=== PATIENT | male | born 1940 | race Caucasian/White ===

== ENCOUNTER → 2016-10-27 | Outpatient (CLI) | payer MEDICARE, MEDICAID ==
[~2016-10-27] VITALS: Ht 175.3 cm; Wt 49.0 kg
[~2016-10-27] MED LIST: BAYE325T12 PO; COLA100C3 PO; IPRASOL4 INH; LIDOCAINE 2% INJ 100 MG/5 ML SDV (FOR ANES.) As Ordered ONE; MECL-68 PO; NS 1,000 ML IV ONE; OMEP40CA2 PO; PROA1AER INH; PROPOFOL 200 MG/20 ML VIAL As Ordered ONE; SENO8.6T2 PO; SOMA250T PO; TYLETAB15 PO; ZOLO100T PO; fentaNYL 100 MCG/2 ML INJECTION (J3010) As Ordered ONE; melatonin
--- NOTE | 2016-10-27 10:45 | ROOR ---
Patient Name: Volodymyr Aggarwal Procedure Date: 10/27/2016 10:25 AM Date of : 1940 Age: 76 Room: [facility] Gender: Male Note Status: Finalized Procedure: Upper GI endoscopy Indications: Epigastric abdominal pain Providers: Tj Caputo Jr, MD Referring MD: Theresa Herron DO Requesting Provider: Medicines: Propofol per Anesthesia Complications: No immediate complications. Procedure: Pre-Anesthesia Assessment: - Prior to the procedure, a History and Physical was performed, and patient medications and allergies were reviewed. The patient is competent. The risks and benefits of the procedure and the sedation options and risks were discussed with the patient. All questions were answered and informed consent was obtained. Patient identification and proposed procedure were verified by the physician and the nurse in the pre-procedure area and in the procedure room. Mental Status Examination: alert and oriented. Airway Examination: normal oropharyngeal airway and neck mobility. Respiratory Examination: clear to auscultation. CV Examination: normal. ASA Grade Assessment: III - A patient with severe systemic disease. After reviewing the risks and benefits, the patient was deemed in satisfactory condition to undergo the procedure. The anesthesia plan was to use moderate sedation / analgesia (conscious sedation). Immediately prior to administration of medications, the patient was re-assessed for adequacy to receive sedatives. The heart rate, respiratory rate, oxygen saturations, blood pressure, adequacy of pulmonary ventilation, and response to care were monitored throughout the procedure. The physical status of the patient was re-assessed after the procedure. The Endoscope was introduced through the mouth, and advanced to the second part of duodenum. The upper GI endoscopy was accomplished without difficulty. The patient tolerated the procedure well. Findings: The upper third of the esophagus, middle third of the esophagus and lower third of the esophagus were normal. Mildly severe esophagitis with bleeding was found at the gastroesophageal junction. Biopsies were taken with a cold forceps for histology. The cardia, gastric fundus, gastric body, gastric antrum, prepyloric region of the stomach and pylorus were normal. Patchy mild inflammation characterized by congestion (edema), erythema and friability was found in the duodenal bulb. The first portion of the duodenum and second portion of the duodenum were normal. A small hiatal hernia was present. Impression: - Normal upper third of esophagus, middle third of esophagus and lower third of esophagus. - Mildly severe reflux esophagitis. Biopsied. - Normal cardia, gastric fundus, gastric body, antrum, prepyloric region of the stomach and pylorus. - Duodenitis. - Normal first portion of the duodenum and second portion of the duodenum. Recommendation: - Discharge patient to home (ambulatory). - Return to my office in 2 weeks. Tj Caputo MD Tj Caputo Jr, MD 10/27/2016 10:45:15 AM This report has been signed electronically. Number of Addenda: 0 Note Initiated On: 10/27/2016 10:25 AM Estimated Blood Loss: Estimated blood loss: none.
--- NOTE | 2016-10-27 11:07 | ROOR ---
Patient Name: Volodymyr Aggarwal Procedure Date: 10/27/2016 10:27 AM Date of : 1940 Age: 76 Room: [facility] Gender: Male Note Status: Finalized Procedure: Colonoscopy Indications: Screening for colorectal malignant neoplasm Providers: Tj Caputo Jr, MD Referring MD: Theresa Herron DO Requesting Provider: Medicines: Propofol per Anesthesia Complications: No immediate complications. Procedure: Pre-Anesthesia Assessment: - Prior to the procedure, a History and Physical was performed, and patient medications and allergies were reviewed. The patient is competent. The risks and benefits of the procedure and the sedation options and risks were discussed with the patient. All questions were answered and informed consent was obtained. Patient identification and proposed procedure were verified by the physician and the nurse in the pre-procedure area and in the procedure room. Mental Status Examination: alert and oriented. Airway Examination: normal oropharyngeal airway and neck mobility. Respiratory Examination: clear to auscultation. CV Examination: normal. ASA Grade Assessment: II - A patient with mild systemic disease. After reviewing the risks and benefits, the patient was deemed in satisfactory condition to undergo the procedure. The anesthesia plan was to use moderate sedation / analgesia (conscious sedation). Immediately prior to administration of medications, the patient was re-assessed for adequacy to receive sedatives. The heart rate, respiratory rate, oxygen saturations, blood pressure, adequacy of pulmonary ventilation, and response to care were monitored throughout the procedure. The physical status of the patient was re-assessed after the procedure. The Colonoscope was introduced through the anus and advanced to the cecum, identified by appendiceal orifice and ileocecal valve. The colonoscopy was performed without difficulty. The patient tolerated the procedure well. The quality of the bowel preparation was adequate and good. Findings: The rectum, sigmoid colon, descending colon, transverse colon, ascending colon, cecum, appendiceal orifice and ileocecal valve appeared normal. A diminutive polyp was found in the hepatic flexure. The polyp was removed with a cold biopsy forceps. Resection and retrieval were complete. Impression: - The rectum, sigmoid colon, descending colon, transverse colon, ascending colon, cecum, appendiceal orifice and ileocecal valve are normal. - One diminutive polyp at the hepatic flexure, removed with a cold biopsy forceps. Resected and retrieved. Recommendation: - Repeat colonoscopy in 5-10 years for surveillance based on pathology results. Tj Caputo MD Tj Caputo Jr, MD 10/27/2016 11:07:18 AM This report has been signed electronically. Number of Addenda: 0 Note Initiated On: 10/27/2016 10:27 AM Estimated Blood Loss: Estimated blood loss: none.
[2016-10-27 11:39] VITALS: BP 133/78
== END | disposition home or self-care (01) ==
LOC: M OPP 09:06
PROVIDERS: ATTEND Surgery
DX: Z12.11 Encounter for screening for malignant neoplasm of colon (principal); D12.3 Benign neoplasm of transverse colon; R10.13 Epigastric pain; R11.2 Nausea with vomiting, unspecified; K29.80 Duodenitis without bleeding; K21.0 Gastro-esophageal reflux disease with esophagitis; R93.2 Abnormal findings on diagnostic imaging of liver and biliary tract; K59.00 Constipation, unspecified; B18.2 Chronic viral hepatitis C; D64.9 Anemia, unspecified; F41.9 Anxiety disorder, unspecified; F32.9 Major depressive disorder, single episode, unspecified; M54.2 Cervicalgia; M25.60 Stiffness of unspecified joint, not elsewhere classified; J44.9 Chronic obstructive pulmonary disease, unspecified; R32 Unspecified urinary incontinence; Z86.69 Personal history of other diseases of the nervous system and sense organs; R06.02 Shortness of breath; Z87.19 Personal history of other diseases of the digestive system; Z87.828 Personal history of other (healed) physical injury and trauma; Z87.891 Personal history of nicotine dependence; Z88.0 Allergy status to penicillin; Z88.1 Allergy status to other antibiotic agents; Z79.82 Long term (current) use of aspirin; Z79.899 Other long term (current) drug therapy
CPT/HCPCS: 43239; 45380; 88305; J3010

== ENCOUNTER → 2016-11-29 | Outpatient (CLI) | payer MEDICARE, MEDICAID ==
[~2016-11-29] MED LIST changes: -LIDOCAINE 2% INJ 100 MG/5 ML SDV (FOR ANES.) As Ordered ONE; -NS 1,000 ML IV ONE; -PROPOFOL 200 MG/20 ML VIAL As Ordered ONE; -fentaNYL 100 MCG/2 ML INJECTION (J3010) As Ordered ONE
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
== END ==
LOC: M ONCR 13:57
PROVIDERS: ATTEND Radiology Radiation Oncology
DX: C15.9 Malignant neoplasm of esophagus, unspecified (principal)

== ENCOUNTER → 2016-12-12 | Outpatient (REF) | payer MEDICARE, MEDICAID ==
[~2016-12-12] MED LIST changes: -COLA100C3 PO; +COLA100C5 PO; -PROA1AER INH; +PROAAER10 INH; -SENO8.6T2 PO; +SENO8.6T5 PO
== END ==
LOC: M LAB REF 17:34
PROVIDERS: ATTEND Internal Medicine Medical Oncology
DX: C16.9 Malignant neoplasm of stomach, unspecified (principal)

== ENCOUNTER → 2016-12-13 | Outpatient (CLI) | payer MEDICARE, MEDICAID ==
--- NOTE | 2016-12-14 19:37 | REP ---
PET/CT: History: Initial staging esophageal carcinoma. Comparisons: Comparison CT abdomen and pelvis, [facility] September 01, 2016. TECHNIQUE: 55 minutes following the intravenous injection of a 9.1 mCi dose of F-18 FDG, three-dimensional PET scintigraphy is acquired from the skull base to the proximal thighs. Triplanar noncontrast CT scanning is acquired through the same anatomic range for attenuation correction, and image registration with scan parameters optimized to minimize radiation exposure to the patient. PET scintigraphy and CT datasets were fused and displayed on a workstation with multiplanar and projection display capability. PET/CT Findings: There is a small focus of mildly hypermetabolic uptake in the distal esophagus just above the gastroesophageal junction, which presumably corresponds to the patient's known esophageal malignancy. Maximum standard uptake value here is 3.6. No other abnormal hypermetabolic uptake is seen within the chest. The head and neck soft tissues are unremarkable. No abnormal pulmonary parenchymal hypermetabolic uptake is seen. There is a soft tissue nodule in the left lower lobe anteriorly, which measures 7 mm x 3 mm. There is no discernible FDG uptake here. This is of uncertain significance. In the abdomen and pelvis, normal hepatic, splenic, gastrointestinal, and genitourinary FDG accumulation is seen. There is bowel superimposed between the anterior abdominal wall and the liver and this shows some normal mucosal uptake. No abnormal wilbert uptake is seen in the upper abdomen. A levoconvex scoliosis is noted in the lumbar spine. Study is otherwise unremarkable. Impression: Small focus of mildly hypermetabolic uptake involving the distal esophagus just above the GE junction, which is presumed to correspond with the endoscopically biopsied esophageal malignancy. No other abnormal hypermetabolic uptake is seen. There is a noncalcified nodular density in the left lower lobe 7 mm in diameter without discernible ST-T uptake. Follow-up chest CT is recommended. Signed by Lyle Cuevas MD 12/14/2016 09:20 P
== END ==
LOC: M PLARAD 11:18
PROVIDERS: ATTEND Radiology Radiation Oncology
DX: C15.9 Malignant neoplasm of esophagus, unspecified (principal)
CPT/HCPCS: 78815; A9552

== ENCOUNTER → 2016-12-16 | Outpatient (CLI) | payer MEDICARE, MEDICAID ==
[2016-12-16 19:13] LABS: BLOOD UREA NITROGEN 20 MG/DL (7-18); CREATININE FOR GFR 0.93 MG/DL (0.70-1.30); GLOMERULAR FILTRATION RATE > 60.0 (>42)
== END ==
LOC: M LAB 18:03
PROVIDERS: ATTEND Physical Medicine & Rehabilitation
DX: M47.896 Other spondylosis, lumbar region (principal)

== ENCOUNTER 2016-12-22 12:58 | Outpatient (RCR) | payer MEDICARE, MEDICAID ==
--- NOTE | 2016-12-22 13:49 | RADONC ---
RADIATION ONCOLOGY SIMULATION NOTE DATE: 12/22/2016 CHART NUMBER: [id number] Mr. Aggarwal was taken to the CT scan for CT simulation of his gastroesophageal field. CT was accomplished without difficulty or discomfort. Radiation treatment planning is underway and radiation treatments will begin subsequently. An immobilization device was created without difficulty or discomfort. It will be used throughout the course of treatment. I was physically present throughout the course of CT simulation.
== END 2017-01-02 ==
LOC: M ONCR 12:58
PROVIDERS: ATTEND Radiology Radiation Oncology
DX: C16.0 Malignant neoplasm of cardia (principal)
CPT/HCPCS: 77290; 77295; 77300; 77334; G0463

== ENCOUNTER → 2016-12-22 | Outpatient (CLI) | payer MEDICARE, MEDICAID | LOC: M RAD 13:00 | PROVIDERS: ATTEND Radiology Radiation Oncology | DX: C16.0 Malignant neoplasm of cardia (principal) ==

== ENCOUNTER → 2016-12-23 | Outpatient (CLI) | payer MEDICARE, MEDICAID ==
--- NOTE | 2016-12-23 17:35 | REP ---
MRI study of the right knee without and with IV gadolinium: History: History of esophageal carcinoma. Right knee pain and immobility. No comparison radiographs. Technique: Axial, sagittal and coronal imaging planes utilized. T1, proton density and T2-weighted scans were obtained in the usual fashion with without fat saturation. MRI contrast dose: 9 mL of intravenous ProHance is administered. MRI findings: Cortical and medullary bone signal intensity are normal. There is no evidence to suggest bony destructive lesion. There is a pin tract horizontally distributed in the distal femoral metaphysis and some post traumatic old deformity is seen in the distal femur at the upper margin of the imaging field of view. There is a small joint effusion. No visible Lynn's cyst is seen. There is osteoarthritic spurring at the medial and lateral tibiofemoral compartment. There is osteoarthritis in the patellofemoral compartment as well with some cartilage loss chondromalacia. Patellar and quadriceps tendons appear intact. Anterior posterior cruciate ligaments appear intact. There is no evidence of medial or lateral collateral ligament disruption. Some moderate chondromalacia is seen in the medial and lateral tibial femoral compartment. Subcortical cyst formation is seen in the lateral tibial plateau. Study is otherwise unremarkable. 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 Small joint effusion. Status post orthopedic fixation pin tract in the distal femur. No bony destructive lesion seen. No evidence of meniscal tear. Signed by Lyle Cuevas MD 12/26/2016 05:34 P
--- NOTE | 2016-12-23 18:07 | REP ---
MRI LUMBAR SPINE WITHOUT AND WITH CONTRAST: HISTORY: Back pain. CONTRAST: ProHance 9 mL. COMPARISON: 02/20/2014. Decreased signal intensity on T2 weighted images is present in the lumbar intervertebral discs. The discs are decreased in height. These findings are consistent with disc degeneration. A diffuse disc bulge is present at the L1-2 level. There is minimal compression of the thecal sac. There is hypertrophy of the posterior articulating facets. The L1 nerves exit the neural foramina without compression. A diffuse disc bulge is present at the L2-3 level. There is hypertrophy of the ligamenta flava and posterior articulating facets. These findings produce moderate central canal stenosis. The L2 nerves exit the neural foramina without compression. A diffuse disc bulge is present at the L3-4 level. There is hypertrophy of the ligamenta flava and posterior articulating facets. There are 3 mm of grade 1 spondylolisthesis of L3 on 4. These findings produce severe central canal stenosis. There is compression of the right L3 nerve in the neural foramen. The left L3 nerve exits the neural foramen without compression. A diffuse disc bulge is present at the L4-5 level. There is hypertrophy of ligamenta flava and posterior articulating facets. These findings produce severe central canal stenosis. There is compression of the right L4 nerve in the neural foramen. The left L4 nerve exits the neural foramen without compression. A diffuse disc bulge and small central disc protrusion are present at the L5-S1 level. There is minimal compression of the thecal sac. There s hypertrophy of the posterior articulating facets. The L5 nerves exit the neural foramina without compression. The conus medullaris is normal in appearance terminating at the level of the L1-2 intervertebral discs. Increased signal intensity on T2 weighted images is present in the endplates of the L3 and 4 vertebral bodies. This represents degenerative change. There is an old compression fracture of the L3 vertebral body with mild height loss. IMPRESSION: 1. Diffuse disc bulge at the L1-2 level with minimal thecal sac compression. 2. Moderate central canal stenosis at the L2-3 level secondary to disc bulge, ligamentous, and facet hypertrophy. 3. Severe central canal stenosis at the L3-4 level secondary to disc bulge, ligamentous and facet hypertrophy and grade 1 spondylolisthesis. There is compression of right L3 nerve in the neural foramen . 4. Severe central canal stenosis at the L4-5 level secondary to disc bulge, ligamentous and facet hypertrophy. There is compression of the right L4 nerve in the neural foramen. 5. Diffuse disc bulge and small central disc protrusion at the L5-S1 level with minimal thecal sac compression. 6. Old L3 compression fracture with mild height loss. This has progressed slightly compared to the previous study. There is no other significant change. Signed by Noe Arias MD 01/02/2017 08:19 A
== END ==
LOC: M PLARAD 14:29
PROVIDERS: ATTEND Physical Medicine & Rehabilitation
DX: M17.11 Unilateral primary osteoarthritis, right knee (principal); M94.261 Chondromalacia, right knee; M25.461 Effusion, right knee; M51.26 Other intervertebral disc displacement, lumbar region; M48.06 Spinal stenosis, lumbar region; M43.16 Spondylolisthesis, lumbar region; M51.27 Other intervertebral disc displacement, lumbosacral region; Z87.311 Personal history of (healed) other pathological fracture
CPT/HCPCS: 72158; 73723; A9576

== ENCOUNTER 2017-01-03 11:22 | Outpatient (RCR) | payer MEDICARE, MEDICAID ==
--- NOTE | 2017-01-09 15:15 | RADONC ---
RADIATION ONCOLOGY PROGRESS NOTE DATE: 01/09/2017 CHART NUMBER: [id number] Mr. Pena is presently at a dose of 720 cGy to his esophagus and is tolerating treatments quite well at this point with no significant difficulties related to his radiation therapy other than some mild nausea. The patient's review of systems is positive for some mild nausea but is otherwise noncontributory. He denies nausea, vomiting, fevers, chills, night sweats, diplopia, headaches, anxiety or depression, anorexia, weight loss, visual disturbances, chest pain, urinary or bowel difficulties, bone pain, or neurological problems. PHYSICAL EXAMINATION: The patient's weight today is 104.6 pounds. This appears to be down a total of approximately 10 pounds since time of consultation almost 6 weeks ago. The patient's skin is in good condition with no evidence of radiation change present. The remainder of his physical exam remains unchanged as well. Overall, the patient is tolerating his treatments. I have given him dietary instructions and emphasized the need to maintain his weight. We will continue to follow this closely. Radiation will continue as scheduled.
--- NOTE | 2017-01-16 14:26 | RADONC ---
RADIATION ONCOLOGY PROGRESS NOTE DATE OF SERVICE: 01/16/2017 CHART NUMBER: [id number] Mr. Aggarwal is presently at a dose of 1620 centigrade to his esophagus and is tolerating treatments quite well at this point with no complaints related to his radiation therapy. He is having no nausea or other problems at this time. REVIEW OF SYSTEMS: The patient's review of systems is noncontributory. Denies nausea, vomiting, fevers, chills, night sweats, diplopia, headaches, anxiety or depression, anorexia, weight loss, visual disturbances, chest pain, urinary or bowel difficulties, bone pain, or neurological problems. PHYSICAL EXAMINATION: The patient's skin is in good condition with no evidence of radiation change present. There is no moist or dry desquamation. The remainder of his physical exam remains unchanged. Mr. Aggarwal is tolerating treatments quite well and radiation will continue as scheduled.
--- NOTE | 2017-01-24 07:10 | RADONC ---
RADIATION ONCOLOGY PROGRESS NOTE: DATE: 01/23/2017 CHART NUMBER: [id number]. PROGRESS NOTE: Mr. Aggarwal is presently a dose of 2340 cGy to his esophagus and is tolerating his treatments quite well with no significant complaints at this time related to his radiation. The patient's significant other reports that he has been having quite a bit of pain in the abdominal area and has asked for pain medication. He is presently taking pain medication that was given to him by the emergency room. Other than that the patient has no complaints at this time related to his radiation. REVIEW OF SYSTEMS: The patient's review of systems is positive for some abdominal pain is otherwise noncontributory. Denies nausea, vomiting, fevers, chills, night sweats, diplopia, headaches, anxiety or depression, anorexia, weight loss, visual disturbances, chest pain, urinary or bowel difficulties, bone pain, or neurological problems. On physical exam, there is an area around the umbilicus that appears to be consistent with some type of a yeast infection. It is well outside our radiated field and has been present for months. It is clearly documented on our simulation photographs. I have recommended topical treatment. It does not appear to be bothering him. ASSESSMENT: The patient is clinically tolerating treatments. He remains quite weak. He was seen by Dr. Hong and was told he is not a surgical candidate. In light of this, radiation will continue as scheduled.
--- NOTE | 2017-01-31 08:26 | RADONC ---
RADIATION ONCOLOGY PROGRESS NOTE DATE: 01/30/2017 CHART NUMBER: [id number] Mr. Aggarwal is presently at a dose of 2880 cGy to his esophageal gastric junction and is tolerating treatments quite well at this point with no complaints related to his radiation therapy. He is having no pain or discomfort. He has no other complaints. REVIEW OF SYSTEMS: The patient's review of systems is noncontributory. Denies nausea, vomiting, fevers, chills, night sweats, diplopia, headaches, anxiety or depression, anorexia, weight loss, visual disturbances, chest pain, urinary or bowel difficulties, bone pain, or neurological problems. PHYSICAL EXAMINATION: The patient's skin is in good condition with no evidence of moist or dry desquamation. The remainder of his physical exam remains unchanged. Mr. Aggarwal is tolerating treatments quite well and radiation will continue as scheduled.
== END 2017-02-02 ==
LOC: M ONCR 11:22
PROVIDERS: ATTEND Radiology Radiation Oncology
DX: C16.0 Malignant neoplasm of cardia (principal)

== ENCOUNTER → 2017-01-06 | Outpatient (CLI) | payer MEDICARE, MEDICAID ==
--- NOTE | 2017-01-06 16:14 | REP ---
MRI CERVICAL SPINE WITHOUT AND WITH CONTRAST: HISTORY: Neck pain. CONTRAST: ProHance, 10 mL COMPARISON: 02/10/2014 A disc bulge is present at the C2-3 level. There are 2 mm of anterior subluxation of C2 on C3. There is mild effacement of the thecal sac without spinal cord compression. The C2 neural foramina are not seen. A disc bulge with associated osteophyte formation is present at the C3-4 level. There is mild spinal cord compression. Bilateral uncinate process hypertrophy is present. This produces mild and moderate narrowing of the right and left C3 neural foramina respectively. A disc bulge with associated osteophyte formation is present at the C4-5 level. There is moderate effacement of the thecal sac without spinal cord compression. Bilateral uncinate process and left facet hypertrophy are present. These findings produce mild and moderate narrowing of the right and left C4 neural foramina respectively. A disc bulge with associated osteophyte formation is present at the C5-6 level. There is moderate effacement of the thecal sac without spinal cord compression. Bilateral uncinate process hypertrophy is present. This produces mild and minimal narrowing of the right and left C5 neural foramina respectively. A disc bulge with associated osteophyte formation is present at the C6-7 level. There are 2 mm of anterior subluxation of C6 on C7. There is mild spinal cord compression. Bilateral uncinate process hypertrophy is present. This produces moderate narrowing of the C6 neural foramina. A disc bulge is present at the C7-T1 level. There is minimal effacement of the thecal sac without spinal cord compression. The C7 neural foramina are patent. There is no other disc bulge or herniation. The remaining neural foramina are patent. Small areas of increased signal intensity are present in the spinal cord at the C4 level. This represents myelomalacia. The C3-4 through C7-T1 intervertebral discs are decreased in height consistent with disc degeneration. There are old compression fractures of the C3 and C5 vertebral bodies with mild height loss. There is loss of the normal lordotic curve. IMPRESSION: There is cervical spondylosis at the C2-3 through C7-T1 levels most significant at the C3-4 and C6-7 levels where there is mild spinal cord compression. There is focal myelomalacia at the C4 level. The myelomalacia is a new finding. Signed by Noe Arias MD 01/06/2017 04:18 P
== END ==
LOC: M RAD 12:59
PROVIDERS: ATTEND Physical Medicine & Rehabilitation
DX: M47.812 Spondylosis without myelopathy or radiculopathy, cervical region (principal); G95.89 Other specified diseases of spinal cord
CPT/HCPCS: 72156; A9576

== ENCOUNTER 2017-02-03 13:17 | Outpatient (RCR) | payer MEDICARE, MEDICAID ==
--- NOTE | 2017-02-08 10:08 | RADONC ---
RADIATION ONCOLOGY PROGRESS NOTE: DATE: 02/07/2017 CHART NUMBER: [id number] Mr. Pena is thus far at a dose of 3600 cGy to his esophagus and had been tolerating his treatments fairly well. He was last treated on 02/03/2017. We received a phone call from his girlfriend saying that he would be unable to come in today. He should be able to resume radiation tomorrow. As of Monday, he had been tolerating his treatments fairly well and his physical exam showed his skin to be in good condition with no evidence of moist or dry desquamation. Radiation should resume tomorrow.
--- NOTE | 2017-02-14 07:52 | RADONC ---
RADIATION ONCOLOGY PROGRESS NOTE DATE: 02/13/2017 CHART NUMBER: [id number]. PROGRESS NOTE: Mr. Pena is presently at a dose of 4320 cGy to his GE junction and is tolerating treatments quite well at this point with no complaints at this time related to his radiation therapy. He is having no urinary or bowel difficulties. No bone pain. REVIEW OF SYSTEMS: The patient's review of systems is noncontributory. Denies nausea, vomiting, fevers, chills, night sweats, diplopia, headaches, anxiety or depression, anorexia, weight loss, visual disturbances, chest pain, urinary or bowel difficulties, bone pain, or neurological problems. PHYSICAL EXAMINATION: The patient's skin is in good condition with no evidence of radiation desquamation. The remainder of his physical exam remains unchanged. Mr. Aggarwal is tolerating treatments quite well and radiation will continue as scheduled.
--- NOTE | 2017-02-15 14:37 | RADONC ---
RADIATION ONCOLOGY TREATMENT SUMMARY DATE: 02/14/2017 CHART NUMBER: [id number] DIAGNOSIS: Gastroesophageal cancer. ECOG PERFORMANCE STATUS: 2 TREATMENT SUMMARY: Mr. 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 We treated the patient to his gastroesophageal region for a dose of 4500 cGy delivered in 25 fractions of 180 cGy each over 41 elapsed days from 01/04/2017 through 02/14/2017. The patient's gastroesophageal region was treated on the linear accelerator utilizing an 18 MV photon beam via 3D conformal technique with anterior, posterior, left and right lateral mao. He also received concomitant Xeloda and cisplatin. The patient initially presented to discuss preoperative radiation, but throughout the course of treatment was followed by his surgeon and deemed not to be a surgical candidate. Our goal therefore became local control. Overall, the patient did tolerate his treatments quite well with no significant difficulties. He is scheduled see me again in 1 month for further followup. He will also continue to be followed by his other physicians in the meantime. Thank you for allowing us to participate in the care of this very pleasant gentleman. If I could be of any further assistance or provide you with any information, please feel free to contact me anytime. cc: MD Theresa Hudson DO Leo Gosselin, Jr, MD [place], MD
== END 2017-03-04 ==
LOC: M ONCR 13:17
PROVIDERS: ATTEND Radiology Radiation Oncology
DX: C16.0 Malignant neoplasm of cardia (principal)

== ENCOUNTER → 2017-06-20 | Outpatient (CLI) | payer MEDICARE, MEDICAID | LOC: M PLARAD 12:35 | DX: C15.5 Malignant neoplasm of lower third of esophagus (principal); R91.1 Solitary pulmonary nodule | CPT/HCPCS: 78815 ==

== ENCOUNTER → 2017-11-17 | Outpatient (CLI) | payer MEDICARE, MEDICAID ==
[2017-11-17 18:37] LABS: BASO % 0.6 % (0.0-1.0); EOS # 0.1 10^3/uL (0.0-0.50); EOS % 1.8 % (0.0-3.0); HEMATOCRIT 33.9 % (42.0-52.0); HEMOGLOBIN 11.2 g/dl (13.5-17.5); IMMATURE GRANULOCYTE % 0.3 % (0-3.0); LYMPH # 0.4 10^3/uL (1.5-4.5); LYMPH % 5.5 % (24.0-44.0); MEAN CORPUSCULAR HEMOGLOBIN 31.5 pg (27.0-33.0); MEAN CORPUSCULAR VOLUME 95.5 fl (80.0-96.0); MONO # 0.6 10^3/uL (0.0-0.8); MONO % 8.7 % (0.0-5.0); NEUTROPHILS # 5.4 10^3/uL (1.8-7.7); NEUTROPHILS % 83.1 % (36.0-66.0); PLATELET COUNT, AUTOMATED 171 10^3/uL (150-450); RED BLOOD COUNT 3.55 10^6/uL (4.30-6.10); RED CELL DISTRIBUTION WIDTH 13.3 % (11.5-14.5); WHITE BLOOD COUNT 6.6 10^3/uL (4.0-10.0)
[2017-11-17 19:05] LABS: ALBUMIN 3.7 GM/DL (3.2-5.2); ALBUMIN/GLOBULIN RATIO 1.16 (1.00-1.93); ALKALINE PHOSPHATASE 116 U/L (45-117); ALT/SGPT 22 U/L (12-78); ANION GAP 6 MEQ/L (8-16); AST/SGOT 23 U/L (7-37); BILIRUBIN,TOTAL 0.3 MG/DL (0.2-1.0); BLOOD UREA NITROGEN 18 MG/DL (7-18); CALCIUM LEVEL 8.6 MG/DL (8.8-10.2); CARBON DIOXIDE LEVEL 32 MEQ/L (21-32); CHLORIDE LEVEL 99 MEQ/L (98-107); CREATININE FOR GFR 0.86 MG/DL (0.70-1.30); GLOMERULAR FILTRATION RATE > 60.0 (>42); GLUCOSE, FASTING 94 MG/DL (70-100); POTASSIUM SERUM 4.4 MEQ/L (3.5-5.1); SODIUM LEVEL 137 MEQ/L (136-145); TOTAL PROTEIN 6.9 GM/DL (6.4-8.2)
== END ==
LOC: M SMT 13:59
DX: D64.9 Anemia, unspecified (principal); R64 Cachexia; F03.90 Unspecified dementia, unspecified severity, without behavioral disturbance, psychotic disturbance, mood disturbance, and anxiety; C15.9 Malignant neoplasm of esophagus, unspecified; M48.00 Spinal stenosis, site unspecified
CPT/HCPCS: 84443

== ENCOUNTER → 2017-12-22 | Outpatient (CLI) | payer MEDICARE, MEDICAID | LOC: M RAD 07:48 | DX: B18.2 Chronic viral hepatitis C (principal) | CPT/HCPCS: 76705 ==